=== PATIENT | male | born 1950 | race Caucasian/White ===

== ENCOUNTER 2016-10-28 13:08 | Emergency (ER) | payer MEDICARE, BC ==
[2016-10-28 13:30] VITALS: BP 125/57
--- NOTE | 2016-10-28 13:40 | ERNOTE ---
Abdominal HPI - General Chief Complaint: Abdominal Pain Time Seen by Provider: 10/28/16 13:25 Source: patient Exam Limitations: no limitations - Immun/Allergies/Home Medications Immunizatons: IMMUNIZATION HX Immunizations Up to Date Yes History of Influenza Vaccine No Hx Pneumococcal Vaccination No Allergies/Adverse Reactions: Allergies hydrocodone bitartrate [From Vicodin] Adverse Reaction (Severe, Verified 17:04) Nausea Home Medications: HOME MEDICATIONS Cholecalciferol (Vitamin D3) [Vitamin D3] 2,000 unit PO DAILY 07/05/14 [Last Taken Unknown] Insulin Glargine,Hum.rec.anlog [Lantus] 30 units SC QPM 07/05/14 [Last Taken Unknown] Atorvastatin Calcium [Lipitor] 10 mg PO HS 10/28/16 [Last Taken Unknown] Dicyclomine HCl [Bentyl] 10 mg PO TID PRN #20 capsule 10/28/16 [Last Taken Unknown] Enalapril Maleate [Vasotec] 5 mg PO HS 10/28/16 [Last Taken Unknown] Glimepiride [Amaryl] 4 mg PO BID 10/28/16 [Last Taken Unknown] - History of Present Illness Narrative: Patient started taking Lipitor and immediately had abdominal pain. He discussed this with the pharmacist and was told this is a common side effect from some of the statin drugs. Patient shows up because he is unclear what to do. Timing: constant Quality: mild Activities at Onset: none Modifying Factors - (Worsens): Present: other - prescription statin drugs Associated Symptoms: Present: denies symptoms Prior Abdominal Problems: Present: none Prior Treatment: Present: recently seen, treated by physician Review of Systems - Review of Systems Constitutional: Present: See HPI EYE: Present: no symptoms reported ENT: Present: no symptoms reported Respiratory: Present: no symptoms reported Cardiology: Present: no symptoms reported Gastrointestinal/Abdominal: Present: See HPI, abdominal pain Genitourinary: Present: no symptoms reported Musculoskeletal: Present: no symptoms reported Skin: Present: no symptoms reported Neurological: Present: no symptoms reported Endocrine: Present: no symptoms reported Hematologic/Lymphatic: Present: no symptoms reported Psych: Present: no symptoms reported - Patient's Past Medical History Patient History - Medical: Diabetes Type 2 Insulin Dependent Patient History - Cardiac/Respiratory: Hypertension, Hyperlipidemia Patient History - Cancer: No Hx of Cancer Patient History - Surgical Procedures: Ear Tubes Patient History - Other: None - Family History Father Family History - Medical: Family History - Cardiac/Respiratory: CVA/Stroke - Social History Living Situations: home Abuse History: No History of abuse Psych History: No pertinent hx Smoking Status: Smoker, status unknown Alcohol Use: none Drug Use: none - Immunizations Immunizations Up to Date: Yes Hx Pneumococcal Vaccination: No History of Influenza Vaccine: No Physical Exam - Physical Exam General Appearance: Present: wd/wn, alert, mild distress Head Exam: Present: normal inspection Eye Exam: Normal inspection: bilateral, PERRL: bilateral Ears, Nose, Throat: Present: normal ENT inspection, H, normal pharynx Neck: Present: normal inspection, nontender Respiratory: Present: no respiratory distress, normal breath sounds, no accessory muscle use, chest nontender, lungs clear Cardiovascular/Chest: Present: regular rate, rhythm, no murmur, normal peripheral pulses Gastrointestinal/Abdominal: Present: normal bowel sounds, nondistended, soft, no organomegaly, tenderness - mild generalized tenderness Rectal Exam: Present: deferred Back Exam: Present: normal inspection, normal range of motion Extremity Exam: Present: normal inspection, non-tender, no edema, normal range of motion Neurological Exam: Present: alert, oriented, normal mood/affect Skin Exam: Present: normal color, warm/dry Lymphatic Exam: Present: no adenopathy ED Progress - Vital Signs Patient's Vital Signs:: I have reviewed the patient's vital signs. Vital Signs: Vital Signs 10/28/16 10/28/16 13:15 13:28 Temperature 36.7 C Pulse Rate 84 86 Respiratory 15 14 Rate Blood Pressure 127/62 125/57 O2 Sat by Pulse 98 98 Oximetry - Progress/Reassessment Chief Complaint: Abdominal Pain Plan - Plan Plan: Patient is going to stop taking the Lipitor and he is going to call Dr. Marin and discuss options for any hyperlipidemia he had been having. We will give the patient several days of Bentyl which should help with some of the spasms is having. Departure - Departure Clinical Impression: Medication reaction Qualifiers: Encounter type: initial encounter Qualified Code(s): T88.7XXA - Unspecified adverse effect of drug or medicament, initial encounter Disposition: Home self-care Condition: Good Instructions: Drug Allergy, [id number] Referrals: John Marin MD [Primary Care Provider] - Prescriptions: Dicyclomine HCl [Bentyl] 10 mg PO TID PRN #20 capsule PRN Reason: Moderate Pain
== END 2016-10-28 13:44 | disposition home or self-care (01) ==
LOC: ER 13:08
DX: T88.7XXA Unspecified adverse effect of drug or medicament, initial encounter (principal)